=== PATIENT | male | born 1965 | race Caucasian/White ===

== ENCOUNTER 2016-09-11 15:09 | Emergency (ER) | payer BC, OTHER ==
[2016-09-11 15:21] VITALS: O2SAT 96
--- NOTE | 2016-09-11 15:33 | ERPHSYRPT ---
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 pt c/o pain to right groin. denies hitting head. denies right shoulder or hip pain. no difficulty urinating. Triage Nursing Assessment: pt pink, warm, dry. pt able to ambulate into er on own. no bruising or swelling noted to right groin or hip area. denies any pelvic pain. 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 pt c/o pain to right groin. denies hitting head. denies right shoulder or hip pain. no difficulty urinating. Occurred: just prior to arrival Reason for Fall: fell from standing pos Injuries/Pain Location: pelvis Loss of Consciousness: no loss of consciousness Quality: aching Severity of Pain-Max: moderate Severity of Pain-Current: mild Modifying Factors: Improves With: nothing Associated Symptoms (Fall): denies symptoms Allergies/Adverse Reactions: No Known Drug Allergies Allergy (Unverified 09/11/16 15:21) Home Medications: Atorvastatin Calcium 40 mg PO HS 09/11/16 [History] Hum Insulin NPH/Reg Insulin Hm [Novolin 70-30 100 Unit/ml Vial] 0 unit SQ UD [History] Insulin Degludec [Tresiba Flextouch U-100] 26 unit SQ DAILY 09/11/16 [History] Lisinopril [Zestril] 2.5 mg PO DAILY 09/11/16 [History] Hx Tetanus, Diphtheria Vaccination/Date Given: Yes (unknown) Hx Influenza Vaccination/Date Given: No Hx Pneumococcal Vaccination/Date Given: No Immunizations Up to Date: Yes - Review of Systems Constitutional: No Fever, No Chills Eyes: No Symptoms Ears, Nose, & Throat: No Symptoms Respiratory: No Cough, No Dyspnea Cardiac: No Chest Pain, No Edema, No Syncope Abdominal/Gastrointestinal: No Abdominal Pain, No Nausea, No Vomiting, No Diarrhea Genitourinary Symptoms: No Dysuria Musculoskeletal: Other (right side groin pain), No Back Pain, No Neck Pain Skin: No Rash Neurological: No Dizziness, No Focal Weakness, No Sensory Changes Psychological: No Symptoms Endocrine: No Symptoms All Other Systems: Reviewed and Negative - Past Medical History Pertinent Past Medical History: Yes Endocrine Medical History: Diabetes Type I - Past Surgical History Past Surgical History: No - Social History Smoking Status: Never smoker Exposure to second hand smoke: No Drug Use: none Patient Lives Alone: No - Nursing Vital Signs Nursing Vital Signs: Initial Vital Signs Temperature 97.8 F Temperature Source Oral Pulse Rate 69 Respiratory Rate 20 Blood Pressure [] 138/88 Pain Intensity 2 - [place] Coma Score Best Eye Response ([place]): (4) open spontaneously Best Verbal Response ([place]): (5) oriented Best Motor Response ([place]): (6) obeys commands [place] Total: 15 - Physical Exam General Appearance: no apparent distress, alert Head Injury: no evidence of injury Eye Exam: PERRL/EOMI ENT Exam: airway nml Neck Exam: normal inspection, No tenderness Respiratory/Chest Exam: normal breath sounds, No chest tenderness, No respiratory distress Cardiovascular Exam: normal heart sounds, regular rate/rhythm Gastrointestinal Exam: soft, No tenderness, No distention, No guarding, No ecchymosis Back Exam: normal inspection, No vertebral tenderness Extremity Exam: normal inspection, normal range of motion, pelvis stable, other (right side groin pain), No deformities, No limited range of motion Neurologic Exam: alert, oriented x 3, cooperative, sensation nml, No motor deficits Skin Exam: normal color, warm, dry SpO2: 96 Oxygen Delivery: Room Air - Course Nursing assessment & vital signs reviewed: Yes - Radiology Exams Pelvis X-ray Interpretation: Reviewed by me Ordered Tests: Active Orders 24 hr Category Date Time Status PELVIS (1 OR 2 VIEWS) Stat Exams 09/11/16 15:27 Taken - Progress Progress: improved Counseled pt/family regarding: diagnosis, need for follow-up, rad results - Departure Time of Disposition: 16:09 Departure Disposition: Home Clinical Impression: Fall from mobile elevated work platform as cause of accidental injury Sprain of groin Qualifiers: Encounter type: initial encounter Qualified Code(s): S33.8XXA - Sprain of other parts of lumbar spine and pelvis, initial encounter Condition: Stable Critical Care Time: No Referrals: DOCTOR,NO FAMILY [Primary Care Provider] - Instructions: Prevent Falls, Groin Strain Prescriptions: Naproxen 375 mg [Naprosyn 375 mg] 375 mg PO Q8H #30 tablet
[2016-09-11 16:33] VITALS: BP 107/63; PULSE 64
--- NOTE | 2016-09-11 21:11 | XRAY ---
Indication: Right groin pain following fall off ladder. Comparison: None Single AP pelvis demonstrates a few pelvic phleboliths. No other bony, articular, or soft tissue abnormalities.
== END 2016-09-11 16:34 | disposition home or self-care (01) ==
LOC: ED 15:09
DX: S33.8XXA Sprain of other parts of lumbar spine and pelvis, initial encounter (principal); W17.89XA Other fall from one level to another, initial encounter; Y92.64 Mine or pit as the place of occurrence of the external cause; R10.9 Unspecified abdominal pain; E10.9 Type 1 diabetes mellitus without complications
CPT/HCPCS: 72170; 80307; 99282